=== PATIENT | male | born 1990 | race Caucasian/White ===

== ENCOUNTER 2018-09-12 10:16 | Emergency (ER) | payer SELFPAY ==
[~2018-09-12] VITALS: Ht 175.3 cm; Wt 90.7 kg
[2018-09-12 10:19] VITALS: Ht 175.3 cm; Wt 90.7 kg
[2018-09-12 11:17] VITALS: BP 136/87
== END 2018-09-12 11:17 | disposition home or self-care (01) ==
LOC: ED 10:16
DX: S21.152A Open bite of left front wall of thorax without penetration into thoracic cavity, initial encounter (principal); W54.0XXA Bitten by dog, initial encounter; Y93.01 Activity, walking, marching and hiking; Y92.410 Unspecified street and highway as the place of occurrence of the external cause; Y99.8 Other external cause status
CPT/HCPCS: 90715

== ENCOUNTER 2020-02-07 13:42 | Emergency (ER) | payer MEDICAID ==
[~2020-02-07] VITALS: Ht 175.3 cm; Wt 91.6 kg
[2020-02-07 13:48] VITALS: BP 136/74; Ht 175.3 cm; Wt 91.6 kg
== END 2020-02-07 14:27 | disposition home or self-care (01) ==
LOC: ED 13:42
DX: L03.116 Cellulitis of left lower limb (principal); L03.115 Cellulitis of right lower limb; B00.89 Other herpesviral infection